=== PATIENT | female | born 1950 | race Caucasian/White ===

== ENCOUNTER → 2016-05-09 | Outpatient (CLI) | payer OTHER, MEDICARE ==
--- NOTE | 2016-05-09 12:56 | MA ---
Left Diagnostic Digital Mammogram with [facility] Clinical Indications: Left breast pain. Technique: Digital CC and MLO views. This examination was processed by the [facility] computer-aided detec tion system. Comparison: Ultrasound March 2016, mammograms October 2015, October 2014, September 2013, September 2012, September 2011. Breast Density: 3, 50-75%. Findings: Left breast demonstrate no new dominant densities, suspicious cluster of microcalcification or architectural distortion. Impression: ACR BI-RADS 2: Benign left mammogram. Recommendation: Annual mammograms with next bilateral screening mammograms in October 2016. [facility] will [facility] result letter to the patient. Negative mammography should not preclude additional workup of a clinically suspicious finding. Findings and recommendations have been discussed with the patient who agrees with the plan. The patient's information is entered into a reminder system with a target due date for her next mammo gram.
== END ==
LOC: BMCIMAGING 12:24
PROVIDERS: ATTEND Family Medicine
DX: N64.4 Mastodynia (principal); M85.80 Other specified disorders of bone density and structure, unspecified site; S69.92XA Unspecified injury of left wrist, hand and finger(s), initial encounter; E78.00 Pure hypercholesterolemia, unspecified
CPT/HCPCS: G0206

== ENCOUNTER → 2016-11-14 | Outpatient (CLI) | payer OTHER, MEDICARE | LOC: BMCIMAGING 12:49 | PROVIDERS: ATTEND Family Medicine | DX: Z12.31 Encounter for screening mammogram for malignant neoplasm of breast (principal) | CPT/HCPCS: G0202 ==

== ENCOUNTER → 2017-11-15 | Outpatient (CLI) | payer OTHER, MEDICARE | LOC: BMCIMAGING 14:09 | PROVIDERS: ATTEND Family Medicine | DX: Z12.31 Encounter for screening mammogram for malignant neoplasm of breast (principal) ==

== ENCOUNTER 2018-09-14 10:40 | Emergency (ER) | payer OTHER, MEDICARE ==
[2018-09-14 10:45] VITALS: BP 109/71
--- NOTE | 2018-09-14 10:54 | EDPHY ---
H & P Stated Complaint: uri symptoms sinus pressure sauceda fever Time Seen by Provider: 09/14/18 10:51 HPI/ROS: CHIEF COMPLAINT: Upper respiratory infection, mild headache, sinus pain HISTORY OF PRESENT ILLNESS: The patient presents to the ED with complaints of bilateral frontal sinus pain. She has had an upper respiratory infection for the past 10 days. She has still been experiencing a mild dry cough. She presents to the ED today complaining of sinus type headache. She denies any symptoms of nuchal rigidity. She has no complaints of numbness or weakness. She reports her headache is mild in nature. The patient has been taking Excedrin without improvement of her symptoms. She is not taking nonsteroidal anti-inflammatories. The patient denies any additional medical problems. REVIEW OF SYSTEMS: A comprehensive 10 point review of systems is otherwise negative aside from elements mentioned in the history of present illness. Source: Patient Exam Limitations: No limitations - Personal History Current Tetanus Diphtheria and Acellular Pertussis (TDAP): No - Medical/Surgical History Hx Asthma: No Hx Chronic Respiratory Disease: No Hx Diabetes: No Hx Cardiac Disease: No Hx Renal Disease: No Hx Cirrhosis: No Hx Alcoholism: No Hx HIV/AIDS: No Hx Splenectomy or Spleen Trauma: No Other PMH: denies - Social History Smoking Status: Never smoked - Physical Exam Exam: General Appearance: Alert, no distress Head: Normocephalic, bilateral frontal sinus tenderness Eyes: Pupils equal and round no pallor or injection ENT, Mouth: Mucous membranes moist Respiratory: There are no retractions, lungs are clear to auscultation Cardiovascular: Regular rate and rhythm Gastrointestinal: Abdomen is soft and nontender, no masses, bowel sounds normal Neurological: A&O, normal motor function, normal sensory exam, normal cranial nerves Skin: Warm and dry, no rashes Musculoskeletal: Neck is supple nontender, specifically no meningeal symptoms Extremities: symmetrical, full range of motion Psychiatric: Patient is oriented X 3, there is no agitation Constitutional: Initial Vital Signs Temperature (C) 37.1 C 09/14/18 10:43 Heart Rate 78 09/14/18 10:43 Respiratory Rate 18 09/14/18 10:43 Blood Pressure 109/71 09/14/18 10:43 O2 Sat (%) 96 09/14/18 10:43 O2 Delivery Mode Room Air Allergies/Adverse Reactions: No Known Allergies Allergy (Verified 09/14/18 10:42) Home Medications: Medication Instructions Recorded Amoxicillin/Clavulanate Pot 875 mg PO BID #20 tab 09/14/18 [Augmentin 875 mg tablet] Citalopram 09/14/18 Hormone 09/14/18 Medical Decision Making ED Course/Re-evaluation: Patient presents to the ED with acute sinusitis in the setting of recent upper respiratory infection. The patient has no clinical evidence of meningitis. She is nontoxic well-appearing. The patient will be started on antibiotics. She is advised to use ibuprofen and Mucinex. She is discharged home with customary aftercare instructions and return precautions. Differential Diagnosis: Differential diagnosis considered includes sinusitis, pharyngitis, otitis media , meningitis Departure - Departure Disposition: Home, Routine, Self-Care Clinical Impression: Sinusitis Condition: Good Instructions: Sinusitis (ED) Additional Instructions: 1. Take Ibuprofen or Motrin 600 mg by mouth three times a day. 2. Take antibiotics as directed 3. I do recommend using Mucinex. 4. Return to the ED for markedly worsening symptoms, neck stiffness, high fever , severe headache, numbness, weakness or other concerns. Referrals: Silvia Chaudhry MD [Primary Care Provider] - As per Instructions
== END 2018-09-14 11:12 | disposition home or self-care (01) ==
DX: J01.90 Acute sinusitis, unspecified (principal)